=== PATIENT | female | born 1955 | race Caucasian/White ===

== ENCOUNTER 2017-03-26 09:04 | Emergency (ER) | payer OTHER ==
[~2017-03-26] VITALS: Ht 168.9 cm; Wt 110.5 kg
[~2017-03-26 09:04] MED LIST: ALPR0.255 PO; ATEN-36 PO; CALC-652 PO; FAMO20TA6 PO; FISH1CAP29 PO
[2017-03-26 09:08] VITALS: TEMP 98.7; Ht 168.9 cm; Wt 110.5 kg
--- OUTSIDE RECORDS SUMMARY | 2017-03-26 09:09 | XMS REPORT | Referral Summary ---
Author Author [facility] Organization [facility] Address Unknown Phone Unavailable Care Team Providers Care Police Judge Name Role Phone Savannah Silva Primary Care Physician [phone] Encounter VC Date(s): 10/10/15 - 10/10/15 [facility] [address] [place] [address] LOKI Pagan [id number] Discharge Diagnosis: Umbilical hernia Discharge Disposition: 01-Home or Self Care Attending Physician: Johan Stephenson MD Admitting Physician: Johan Stephenson MD Referring Physician: Lucio Silva MD Vital Signs Most recent to 1 oldest [Reference Range]: Temperature Tympanic 37 degC [36.6-38.1 degC] (10/10/15 2:20 PM) Blood Pressure 132/88 mmHg [90-140/60-90 mmHg] (10/10/15 2:20 PM) Problem List Condition Effective Dates Status Health Status Informant Hypertension(Confirm Active ed) Breast Active cancer(Confirmed) Obesity(Confirmed) Active Allergies, Adverse Reactions, Alerts Substance Reaction Severity Status sulfa drugs Rash Medium Active Medications ALPRAZolam 0.5 mg oral tablet 0.5 mg 1 tabs, Oral, Daily, as needed for anxiety, 0 Refill(s) Start Date: 10/10/15 Status: Ordered atenolol 25 mg oral tablet 25 mg 1 tabs, Oral, Daily, # 30 tabs, 0 Refill(s) Start Date: 10/10/15 Status: Ordered Calcium 500+D 1 tabs, Oral, BID, 0 Refill(s) Start Date: 10/10/15 Status: Ordered famotidine 20 mg oral tablet 20 mg 1 tabs, Oral, BID, # 60 tabs, 0 Refill(s) Start Date: 10/10/15 Status: Ordered Fish Oil 1000 mg oral capsule 1,000 mg 1 caps, Oral, TID, # 90 caps, 0 Refill(s) Start Date: 10/10/15 Status: Ordered loratadine 10 mg oral capsule 10 mg 1 caps, Oral, Daily, # 10 caps, 0 Refill(s) Start Date: 10/10/15 Status: Ordered multivitamin Daily, 0 Refill(s) Start Date: 10/10/15 Status: Ordered terbinafine 250 mg oral tablet 250 mg 1 tabs, Oral, Daily, 0 Refill(s) Start Date: 10/10/15 Status: Ordered Results No data available for this section Immunizations No data available for this section Procedures Procedure Date Related Diagnosis Body Site Colonoscopy 2014 Bilateral mastectomy Hysterectomy Social History Social History Type Response Smoking Status Never smoker Assessment and Plan Extracted from: Title: Office Visit Note Author: Johan Stephenson MD Date: 10/10/15 Assessment/Plan 1.Umbilical hernia Ordered: Office Visit Level 4 New [id number] Plan:Umbilical herniorrhaphy with potential incorporation of mesh I did review the patient's chart including office note performed byPs strategy consultant fromSeptember 06, 2015.I informed the patient that she does indeed have a umbilical hernia.I informed the patient that given the size of her umbilicalhernia and the fact that has beenincreasingin its overall size over lastfewyears I would recommend proceeding with elective repair. I spent a fair amount of time discussing hernias with the patient, I did discuss in detail with the patient what an umbilical herniorrhaphy with mesh entailed and its associated riskswhich included but was not inclusive of bleeding and infection, as well as potential for recurrence. The patient understood and was scheduled to undergo umbilical herniorrhaphy with potential incorporation of mesh in the near future.Patient will need a CBC BMP and EKGas part of her preoperative evaluation. Patient was to returnto her PCPs office for preop lab and "medical clearance". Patient was to take her beta keyshawn with a sip water the morning of the procedure.
--- NOTE | 2017-03-26 09:20 | NUR ---
PROVIDER DR. ANTON AT BEDSIDE FOR EXAM.
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
[2017-03-26] MEDS ORDERED: LORA10TA7 PO (09:27)
[2017-03-26] MEDS ORDERED: ERGO400C PO (09:28)
[2017-03-26] MEDS ORDERED: MULT-933 PO (09:29)
[2017-03-26] MEDS ORDERED: CALC-52 PO (09:29)
[2017-03-26] MEDS ORDERED: KETOROLAC 60mg/2ml INJECTION IM ONE (09:30)
[2017-03-26] MEDS ORDERED: ONDANSETRON ODT 4 MG TAB PO ONE (09:30)
--- NOTE | 2017-03-26 09:31 | NUR ---
MED ADM PT REQUESTS TO HOLD ON MEDICATIONS AT THIS TIME. PT STATES "I'M OK LONG I DON'T MOVE IT."
--- NOTE | 2017-03-26 09:33 | NUR ---
XRAY PORTABLE XRAY AT BEDSIDE.
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
--- NOTE | 2017-03-26 09:50 | DI ---
Indication: ITS.REASON: Fall; pain PROCEDURE: RADIUS/ULNA LEFT 2 VIEW: Encounter: Initial Comparison: Left wrist radiographs from the same time. Findings: Impacted distal radial fracture is better evaluated on the wrist radiographs. No additional acute fracture or dislocation seen. Impression: Closed posttraumatic distal radial fracture. .
--- NOTE | 2017-03-26 10:04 | NUR ---
PROVIDER DR. ANTON AT BEDSIDE TO SPEAK WITH PT.
--- NOTE | 2017-03-26 10:17 | NUR ---
DANNY CAMPOS AT BEDSIDE.
[2017-03-26] MEDS ORDERED: LIDOCAINE SQ ONE (10:30)
[2017-03-26] MEDS ORDERED: LIDOCAINE 1% (10mg/ml) 30ml SDV SQ ONE (11:00)
--- NOTE | 2017-03-26 11:00 | NUR ---
STATUS PT RESTING COMFORTABLY IN CART WITH ICE APPLIED TO L WRIST/FOREARM. TOLERATING ICE WELL. CONTINUES TO REFUSE MEDICATION FOR PAIN. CALL LIGHT WITHIN REACH, WILL CONTINUE TO MONITOR.
--- NOTE | 2017-03-26 12:07 | NUR ---
DANNY CAMPOS AT BEDSIDE FOR PROCEDURE.
--- NOTE | 2017-03-26 12:34 | NUR ---
XRAY PORTABLE XRAY AT BEDSIDE.
--- NOTE | 2017-03-26 12:56 | DI ---
Indication: ITS.REASON: post reduction PROCEDURE: WRIST LEFT 2 VIEW: Encounter: Initial Comparison: Left wrist radiographs from earlier today at zero 941 Findings: Interval closed reduction and splinting of the distal radial fracture with slightly improved alignment of the fracture fragments. Splinting material obscures fine bony detail. No other new findings. Impression: As above .
--- NOTE | 2017-03-26 12:57 | DI ---
Indication: ITS.REASON: PreOp left wrist fracture PROCEDURE: CHEST 1 VIEW: Encounter: Initial Comparison: October 21, 2013 FINDINGS: The lungs are clear. There is no abnormal airspace opacity, pleural effusion or pneumothorax identified. The heart size, pulmonary vasculature and mediastinum are unchanged. Prominent hiatal hernia. IMPRESSION: No acute cardiopulmonary abnormality. .
[2017-03-26 13:02] LABS: BASOPHILS % (AUTO) 0.5 % (0-2); EOSINOPHILS # (AUTO) 0.1 T/MM3 (0-0.5); EOSINOPHILS % (AUTO) 1.1 % (0-4); HGB - HEMOGLOBIN 13.8 GM/DL (12-16); IMMATURE GRANULOCYTE # (AUTO) 0.01 T/MM3 (0.00-0.03); IMMATURE GRANULOCYTE % (AUTO) 0.2 % (0.0-0.5); LYMPHOCYTES # (AUTO) 2.2 T/MM3 (1-4.8); LYMPHOCYTES % (AUTO) 34.6 % (23-45); MEAN CORPUSCULAR HGB 27.4 UUG (26-34); MEAN CORPUSCULAR HGB CONC(MCHC 32.1 GM/DL (31-37); MEAN CORPUSCULAR VOLUME 85.5 UM3 (80-100); MEAN PLATELET VOLUME 10.1 UM3 (9.4-12.4); MONOCYTES # (AUTO) 0.3 T/MM3 (0-0.8); MONOCYTES % (AUTO) 4.3 % (0-9.0); NEUTROPHILS #(AUTO)-ABSOLUTE 3.9 T/MM3 (1.8-7.7); NEUTROPHILS % (AUTO) 59.3 % (33-66); RED BLOOD COUNT 5.03 M/MM3 (4.00-5.20); WBC - WHITE BLOOD COUNT 6.5 T/MM3 (4.5-11.0)
[2017-03-26 13:10] LABS: INR 1.08 (0.77-1.03); PROTHROMBIN TIME 11.9 SEC (9.48-12.52); PTT 30.1 SEC (24-36)
[2017-03-26 13:12] LABS: ANION GAP 13 MEQ/L (5-15); BUN/CREATININE RATIO 24 RATIO (6-26); CALCIUM 9.8 MG/DL (8.4-10.2); CHLORIDE 106 MEQ/L (98-107); CO2 - CARBON DIOXIDE 29 MEQ/L (22-30); CREATININE 0.8 MG/DL (0.7-1.2); GLOMERULAR FILTRATION RATE 73; GLUCOSE 104 MG/DL (65-110); POTASSIUM 4.9 MEQ/L (3.6-5); SODIUM 148 MEQ/L (134-144)
[2017-03-26] MEDS ORDERED: OXYC1TAB8 PO (13:24)
--- NOTE | 2017-03-26 13:26 | NUR ---
PROVIDER DR. ANTON AT BEDSIDE TO SPEAK WITH PT.
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
[2017-03-26 13:44] VITALS: BP 141/82; PULSE 55; RESP 16; O2SAT 97
--- NOTE | 2017-03-26 13:44 | NUR ---
DISCHARGE WRITTEN INSTRUCTIONS WITH PERCOCET RX REVIEWED AND SENT WITH PT. PT VERBALIZES UNDERSTANDING OF DI AND MEDICATION, DENIES QUESTIONS. PT AMBULATES OUT OF ER WITH STEADY GAIT ACCOMP BY SPOUSE AT THIS TIME.
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
[2017-03-27] MEDS ORDERED: POLY17PO6 PO (15:25)
[2017-03-27] MEDS ORDERED: HYDR-4246 PO (15:25)
== END 2017-03-26 13:44 | disposition home or self-care (01) ==
LOC: ED 09:04
DX: S52.552A Other extraarticular fracture of lower end of left radius, initial encounter for closed fracture (principal); S60.212A Contusion of left wrist, initial encounter; V18.0XXA Pedal cycle driver injured in noncollision transport accident in nontraffic accident, initial encounter; Y93.55 Activity, bike riding; Y92.009 Unspecified place in unspecified non-institutional (private) residence as the place of occurrence of the external cause; Y99.8 Other external cause status
CPT/HCPCS: 36415; 80048; 85025; 85610; 85730; 93005